=== PATIENT | female | born 1955 | race Caucasian/White ===

== ENCOUNTER 2019-12-23 08:35 | Emergency (ER) | payer BC ==
[~2019-12-23] VITALS: Ht 149.9 cm; Wt 56.2 kg
[~2019-12-23 08:35] MED LIST: ASPIRIN EC81 MG PO; FLEXERIL5 MG PO; GABAPENTIN300 MG PO; HYDROCODON-ACE1 EA10 PO; LEVOTHYROXINE125 MCG PO; NAPROXEN375 MG PO; PROMETHAZINE HC25 M1 PO; TIZANIDINE HCL2 M1 PO; TOPAMAX100 MG PO; ULTRAM50 MG PO
--- OUTSIDE RECORDS SUMMARY | 2019-12-23 08:38 | XMS ---
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 EJodee VISIT COUNT (12 MO.) 2 JOAQUIN Domínguez TOTAL 2 NOTE: Visits indicate total known visits. 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
[2019-12-23] MEDS ORDERED: REGLAN10 MG PO (10:36)
== END 2019-12-23 10:47 | disposition home or self-care (01) ==
LOC: ED 08:35
DX: S16.1XXA Strain of muscle, fascia and tendon at neck level, initial encounter (principal); G43.909 Migraine, unspecified, not intractable, without status migrainosus; E03.9 Hypothyroidism, unspecified; Z88.0 Allergy status to penicillin; Z79.899 Other long term (current) drug therapy; Z79.82 Long term (current) use of aspirin; X50.0XXA Overexertion from strenuous movement or load, initial encounter
CPT/HCPCS: 96374; 96375; 99283-25; J1170; J1200; J1885; J2765; J7030

== ENCOUNTER 2020-08-28 07:05 | Emergency (ER) | payer BC ==
[~2020-08-28] VITALS: Ht 149.9 cm; Wt 56.2 kg
[~2020-08-28 07:05] MED LIST changes: +REGLAN10 MG PO
--- OUTSIDE RECORDS SUMMARY | 2020-08-28 07:18 | XMS ---
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 EJodee VISIT COUNT (12 MO.) 2 JOAQUIN Domínguez TOTAL 2 NOTE: Visits indicate total known visits. 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
[2020-08-28] MEDS ORDERED: NORTRIPTYLINE H25 MG PO (07:21)
[2020-08-28] MEDS ORDERED: TRAMADOL HCL100 M2 PO (08:35)
== END 2020-08-28 08:52 | disposition home or self-care (01) ==
LOC: ED 07:05
DX: S92.354A Nondisplaced fracture of fifth metatarsal bone, right foot, initial encounter for closed fracture (principal); S93.401A Sprain of unspecified ligament of right ankle, initial encounter; X50.9XXA Other and unspecified overexertion or strenuous movements or postures, initial encounter; E03.9 Hypothyroidism, unspecified; Z88.0 Allergy status to penicillin; Z79.899 Other long term (current) drug therapy; Z79.82 Long term (current) use of aspirin
CPT/HCPCS: 73610; 73630; 99283-25; A9270

== ENCOUNTER 2021-02-28 07:54 | Emergency (ER) | payer BC ==
[~2021-02-28] VITALS: Ht 149.9 cm; Wt 60.8 kg
[~2021-02-28 07:54] MED LIST changes: +NORTRIPTYLINE H25 MG PO; +TRAMADOL HCL100 M2 PO
--- OUTSIDE RECORDS SUMMARY | 2021-02-28 07:56 | XMS ---
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 EJodee VISIT COUNT (12 MO.) 2 JOAQUIN Domínguez TOTAL 2 NOTE: Visits indicate total known visits. 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
[2021-02-28] MEDS ORDERED: MAXALT10 MG PO (08:39)
[2021-02-28] MEDS ORDERED: ZOFRAN4 MG PO (09:56)
[2021-02-28] MEDS ORDERED: ONDANSETRON ODT4 MG SL ×2 (19:01)
[2021-03-01] MEDS ORDERED: PROMETHAZINE HC25 MG PR (19:51)
== END 2021-02-28 11:35 | disposition home or self-care (01) ==
LOC: ED 07:54
DX: G43.909 Migraine, unspecified, not intractable, without status migrainosus (principal); E03.9 Hypothyroidism, unspecified; Z88.0 Allergy status to penicillin; Z91.09 Other allergy status, other than to drugs and biological substances; Z79.82 Long term (current) use of aspirin; Z79.899 Other long term (current) drug therapy
CPT/HCPCS: 96374; 96375; 96376; 99283-25; J1170; J1200; J1885; J2405; J7030

== ENCOUNTER 2021-03-01 00:24 | Emergency (ER) | payer BC ==
[~2021-03-01] VITALS: Ht 149.9 cm; Wt 61.7 kg
[~2021-03-01 00:24] MED LIST changes: +MAXALT10 MG PO; +ONDANSETRON ODT4 MG SL; +ZOFRAN4 MG PO
--- OUTSIDE RECORDS SUMMARY | 2021-03-01 01:25 | XMS ---
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 [place] VISIT COUNT (12 MO.) [address] [place] [address] TOTAL 3 NOTE: Visits indicate total known visits. 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
[2021-03-01] MEDS ORDERED: PROMETHAZINE HC25 MG PR (19:51)
== END 2021-03-01 04:13 | disposition home or self-care (01) ==
LOC: ED 00:24
DX: G43.909 Migraine, unspecified, not intractable, without status migrainosus (principal); E03.9 Hypothyroidism, unspecified; Z88.0 Allergy status to penicillin; Z91.09 Other allergy status, other than to drugs and biological substances; Z79.899 Other long term (current) drug therapy; Z79.82 Long term (current) use of aspirin
CPT/HCPCS: 96374; 96375; 99283-25; J1170; J1200; J2405; J2765; J7030

== ENCOUNTER 2021-03-01 15:25 | Emergency (ER) | payer BC ==
[~2021-03-01] VITALS: Ht 149.9 cm; Wt 61.7 kg
--- OUTSIDE RECORDS SUMMARY | 2021-03-01 15:30 | XMS ---
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 - 2 Visits in 30 Days CARE PROVIDERS SARAH WOLF [facility] 01/23/2019-Current PHONE: [phone] Kristen has no Care Guidelines for this patient. [place] VISIT COUNT (12 MO.) [address] [place] [address] TOTAL 4 NOTE: Visits indicate total known visits. ED/UCC VISIT TRACKING (12 MO.) 03/01/2021 15:27 JOAQUIN Cardenas OR TYPE: Emergency COMPLAINT: - FLU SYMPTOMS 03/01/2021 00:25 JOAQUIN Cardenas OR TYPE: Emergency COMPLAINT: - ABD PAIN, N/V 02/28/2021 07:54 JOAQUIN Cardenas OR TYPE: Emergency COMPLAINT: - HEADACHE 08/28/2020 07:06 JOAQUIN Cardenas OR TYPE: Emergency COMPLAINT: - R FOOT/ANKLE INJURY DIAGNOSES: - Other and unspecified overexertion or strenuous movements or postures, initial encounter - assisted (current) use of aspirin - Hypothyroidism, unspecified - Sprain of unspecified ligament of right ankle, initial encounter - Nondisplaced fracture of fifth metatarsal bone, right foot, initial encounter for closed fracture - Allergy status to penicillin - 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
[2021-03-01] MEDS ORDERED: PROMETHAZINE HC25 MG PR (19:51)
== END 2021-03-01 20:13 | disposition home or self-care (01) ==
LOC: ED 15:25
DX: R52 Pain, unspecified (principal); E03.9 Hypothyroidism, unspecified; G43.909 Migraine, unspecified, not intractable, without status migrainosus; Z20.822 Contact with and (suspected) exposure to COVID-19; Z79.899 Other long term (current) drug therapy; Z79.82 Long term (current) use of aspirin; Z88.0 Allergy status to penicillin; Z91.09 Other allergy status, other than to drugs and biological substances
CPT/HCPCS: 71045; 80053; 85025; 96374; 99283-25; J1885; J7030; U0003